=== PATIENT | female | born 1950 | race Caucasian/White ===

== ENCOUNTER 2022-08-15 06:08 | Day surgery (SDC) | payer OTHER, MEDICARE ==
[2022-08-11 14:24] LABS: Absolute Lymphocytes (CBC) 1.5 K/uL (0.7-4.9); Hematocrit 39.7 % (36.0-45.0); Lymphocytes % 27.9 % (15.3-44.8); MCV 91.5 fL (80-100); MPV 7.7 fL (7.6-11.3); RBC Red Blood Cell Count 4.34 M/uL (3.86-4.86)
[2022-08-11 14:34] LABS: SARS-CoV-2 Antigen Rapid Res Negative (Negative)
[2022-08-11 14:41] LABS: Potassium 4.3 mmol/L (3.5-5.1)
[2022-08-15] MEDS ORDERED: Ringers Lactate 1,000 ML IV ONE (06:41)
[2022-08-15] MEDS ORDERED: CLINDAMYCIN 900MG/D5W 900 MG/50 ML IVPB IV ONE (06:41)
[2022-08-15] MEDS ORDERED: dexAMETHasone 10 MG/ML VIAL ONE (06:45)
[2022-08-15] MEDS ORDERED: KETOROLAC 30 MG/ML INJ ONE (06:45)
[2022-08-15] MEDS ORDERED: propofoL 200 MG/20 ML VIAL IV ONE ×4 (06:45→09:10)
[2022-08-15] MEDS ORDERED: FENTANYL CITR 100 MCG/2 ML ONE ×3 (06:45→10:06)
[2022-08-15] MEDS ORDERED: LIDOCAINE 2% MPF 5 ML VIAL ONE (06:46)
[2022-08-15] MEDS ORDERED: ROCURONIUM 50 MG/5 ML VIAL IV ONE (06:46)
[2022-08-15] MEDS ORDERED: ONDANSETRON 4 MG/2 ML VIAL ONE ×2 (06:48→10:07)
[2022-08-15] MEDS ORDERED: SUCCINYLCHOLINE 20 MG/ML (10 ML) IV ONE (06:53)
[2022-08-15] MEDS ORDERED: BUPIVACAINE 0.5% PF 10 ML VIAL ONE (06:56)
[2022-08-15] MEDS ORDERED: NA CHLORIDE 0.9% 0 ML ONE (06:57)
[2022-08-15] MEDS ORDERED: THROMBIN 5000 UNITS/VIAL TOP ONE ×2 (06:57→08:27)
[2022-08-15] MEDS ORDERED: Phenylephrine HCl 10 MG/ML 1 ML VIAL ONE (07:50)
[2022-08-15] MEDS ORDERED: NS 0.9% VIAL 10 ML ONE (07:50)
[2022-08-15] MEDS ORDERED: DEPO-MEDROL 40 MG/ML IM ONE ×2 (08:46)
--- NOTE | 2022-08-15 09:30 | RAD REPORT ---
EXAM DESCRIPTION: RAD - Fluoroscopy <1 Hour - 08/15/2022 9:25 am CLINICAL HISTORY: Lumbar spinal decompression FINDINGS: Eight intraoperative fluoroscopic spot images obtained. Fluoroscopy time 0.1 minute The surgery performed by Dr. Coy Performance of a spinal decompression
[2022-08-15] MEDS ORDERED: HYDROMORPHONE HCL 1 MG/ML INJ ONE (09:51)
[2022-08-15] MEDS ORDERED: PROMETHAZINE INJ 25 MG/ML AMP ONE (10:08)
[2022-08-15] MEDS ORDERED: HYDROCODONE/APAP 10/325 TAB ONE (10:41)
[2022-08-15 10:53] VITALS: BP 128/56; TEMP 96.9; O2SAT 95
--- NOTE | 2022-08-15 14:18 | EKG ---
Test Date: 2022-08-11 Test Time: 13:51:57 Manager Library: AD MEASUREMENT RESULTS: Intervals: Rate: 73 WA: 138 QRSD: 90 QT: 390 QTc: 429 [place]: P: 74 WA: 138 QRS: 76 T: 75 INTERPRETIVE STATEMENTS: Normal sinus rhythm Normal ECG Compared to ECG 02/09/2002 15:31:00 Sinus bradycardia no longer present Electronically Signed On 08-15-22 14:14:52 CDT by Dylan Mares
== END 2022-08-15 11:00 | disposition home or self-care (01) ==
LOC: OR 06:08
PROVIDERS: ATTEND Orthopaedic Surgery
PROC: 01NB0ZZ Release Lumbar Nerve, Open Approach (ICD-10-PCS; principal; 2022-08-15 07:00)
DX: M54.16 Radiculopathy, lumbar region (principal); Z20.822 Contact with and (suspected) exposure to COVID-19
CPT/HCPCS: 36415; 76000; 80048; 85025; 87811; 93005; A4216; J0330; J1030; J1100; J1170; J2001; J2370; J2405; J2550; J2704; J3010; J7030; J7120